=== PATIENT | male | born 1980 ===

== ENCOUNTER 2022-03-03 09:08 | Emergency (ER) | payer OTHER, SELFPAY ==
--- NOTE | 2022-03-03 09:09 | ED.URI ---
HPI - URI/Sore Throat General Chief Complaint: Upper Respiratory Infection Stated Complaint: Congestion/Headache Time Seen by Provider: 03/03/22 09:09 Source: patient Mode of arrival: ambulatory Limitations: no limitations History of Present Illness HPI Narrative: Jason is a 42-year-old male patient presenting to the clinic today with complaints of congestion, sore throat, body aches, chills, and headache that started last week. He reports no known fever. MD elicited complaint: nasal congestion and other ( headache) Related Data Home Medications Medication Instructions Recorded Confirmed amlodipine 10 mg tablet 10 mg PO DIRECTED 03/03/22 03/03/22 atorvastatin 20 mg tablet 20 mg PO DIRECTED 03/03/22 03/03/22 dulaglutide 1.5 mg/0.5 mL 1.5 mg subcut DIRECTED 03/03/22 03/03/22 subcutaneous pen injector (Trulicity) empagliflozin 25 mg tablet 25 mg PO DIRECTED 03/03/22 03/03/22 (Jardiance) ergocalciferol (vitamin D2) 1,250 50,000 unit PO DAILY 03/03/22 03/03/22 mcg (50,000 unit) capsule insulin glargine 100 unit/mL (3 32 unit subcut DIRECTED 03/03/22 03/03/22 mL) subcutaneous pen (Basaglar KwikPen U-100 Insulin) lisinopril 20 1 tablet PO DIRECTED 03/03/22 03/03/22 mg-hydrochlorothiazide 25 mg tablet meloxicam 7.5 mg tablet 7.5 mg PO DAILY 03/03/22 03/03/22 metformin 1,000 mg tablet 1,000 mg PO DIRECTED 03/03/22 03/03/22 Allergies Allergy/AdvReac Type Severity Reaction Status Date / Time No Known Allergies Allergy Verified 03/03/22 09:30 Review of Systems Review of Systems: Pertinent positives per HPI. Patient denies any fever, chills, rash, visual changes, dizziness, cough, shortness of breath, chest pain, palpitations, nausea, vomiting, diarrhea, constipation, abdominal pain, or any urinary issues. PMFSH Comments At the time of my signature, I reviewed and agree with the nursing past medical, surgical, social, and family history. There is no relevant family history pertinent to the patient complaint. Exam Narrative: General: Well-developed, well nourished, in no apparent distress Head: Normocephalic, atraumatic Eyes: Pupils equally round and reactive to light bilaterally, EOM intact, sclera and conjunctive clear, no discharge, lids normal Ears: TMs intact and clear, ear canals clear, no drainage, grossly hearing normal. Nose: Nares patent, clear nasal discharge, no inflammation, no sinus tenderness. Mouth: Oral pharynx without lesions or masses, good dentition, MMM. Neck: Supple, trachea midline, no enlargement of anterior or posterior cervical nodes, no thyroid masses or goiter palpable. Cardio: Regular rate and rhythm, s1 and s2 normal, no murmur appreciated. Resp: Clear to auscultation bilaterally, no rhonchi, rales, wheezing or rubs Abdomen: Soft, pliable, bowel sounds present all 4 quadrants, nontender to palpation, no organomegaly, no CVAT tenderness Course Course Emergency Course: Portions of this record may have been created with voice recognition software. Level of Care: Express Care Visit Vital Signs Vital signs: Vital Signs Temperature 36.1 C L 03/03/22 09:14 Pulse Rate 104 H 03/03/22 09:14 Respiratory Rate 16 03/03/22 09:14 Blood Pressure 157/101 H 03/03/22 09:14 Pulse Oximetry 98 03/03/22 09:14 Oxygen Delivery Room Air 03/03/22 09:14 Temperature 36.1 C L 03/03/22 09:14 Pulse Rate 104 H 03/03/22 09:14 Respiratory Rate 16 03/03/22 09:14 Blood Pressure 157/101 H 03/03/22 09:14 Pulse Oximetry 98 03/03/22 09:14 Oxygen Delivery Room Air 03/03/22 09:14 Vital signs reviewed MDM - URI/Sore Throat MDM Narrative Medical decision making narrative: At the time of visit patient is resting comfortably on the exam table. influenza testing was completed in the clinic and was negative. Patient had at home COVID test completed and negative today. Will do strep culture on the way out and contact him if this comes john
[2022-03-03 09:14] VITALS: BP 157/101; PULSE 104; RESP 16; TEMP 36.1; O2SAT 98
== END 2022-03-03 09:58 | disposition home or self-care (01) ==
PROVIDERS: Emergency Provider Nurse Practitioner Family; PCP Family Medicine
DX: B34.9 Viral infection, unspecified (principal); J06.9 Acute upper respiratory infection, unspecified; J02.9 Acute pharyngitis, unspecified; E78.00 Pure hypercholesterolemia, unspecified; I10 Essential (primary) hypertension
CPT/HCPCS: 87081; 87804; 99203; G0463